=== PATIENT | male | born 1985 | race Caucasian/White ===

== ENCOUNTER 2025-03-22 13:18 | Emergency (ER) | payer OTHER, SELFPAY ==
[2025-03-22 13:21] VITALS: BP 163/111
--- NOTE | 2025-03-22 13:55 | ED.GENMED ---
History of Present Illness
General
Chief Complaint: Crisis Evaluation
Time Seen by Provider: 03/22/25 13:35
History of Present Illness
History of Present Illness:
Patient is a 39-year-old male with history of substance use disorder, presenting to the emergency department for crisis evaluation. Per patient patient used meth a few days ago. He states that his parents initiated a 302. He states that his
parents get upset after he uses meth and lies to get 302 initiated. He does state they said multiple inpatient psychiatric stays both involuntary and voluntary. He does state that he has anxiety depression PTSD. He is not on any medications
currently. At this time he denies any SI or HI. Denies any alcohol or drug use besides meth.
Past History
Past History
ED Past Medical History: Psychiatric (Anxiety, depression) and Other (, hepatitis C with cure, ADHD)
ED Past Surgical History: Appendectomy and Orthopedic (left knee surgery)
Social History
Tobacco: Smoker
Alcohol: Occasional
Drug: Other (Methamphetamine)
Personal: Single
Living: alone
Employment: Not employed
Family History
Family History: Negative Diabetes, Hypertension or CAD
Phy Exam
Physical Exam
Physical Exam:
GENERAL: in no acute distress
HEENT: normocephalic, extraocular movements intact, moist oral mucosa
NECK: normal inspection
RESPIRATORY: no respiratory distress, clear to auscultation bilaterally
CARDIOVASCULAR: regular rate and rhythm
ABDOMEN/: soft, non-distended, non-tender to palpation, no rebound or guarding
EXTREMITIES: non-tender, no edema/swelling
NEUROLOGIC: awake and alert, moves all extremities
Psych: Alert and oriented x 3, normal mood and affect, speech normal not pressured, scattered thoughts, not tangential, not currently suicidal or homicidal, cooperative and communicating, no active auditory or visual hallucinations
SKIN: warm
Course
Orders/Labs/Results
Orders:
Orders
03/22/25 14:04
Crisis Consult Urgent
Reason for Consult: paranoia, delusions
Vital Signs
Initial and Last Documented VS:
Initial Vital Signs
Temp Pulse Resp BP Pulse Ox
98.6 F 95 16 163/111 98
03/22/25 13:21 03/22/25 13:21 03/22/25 13:21 03/22/25 13:21 03/22/25 13:21
Last Documented Vital Signs
Temp Pulse Resp BP Pulse Ox
98.6 F 95 16 163/111 98
03/22/25 13:21 03/22/25 13:21 03/22/25 13:21 03/22/25 13:21 03/22/25 13:59
MDM/Problems Addressed
Differential Diagnosis Includes:
Patient is a 31-year-old male with history of substance use, bipolar disorder not currently on medications presenting to the emergency department for crisis evaluation after parents initiated a 302. On arrival vitals and exam are reassuring.
Patient has no medical complaints. Pending psych eval
*Pulse Oximetry
SaO2: 98
Oxygen Mode of Delivery: Room air
Patient hypoxic: no (98)
*Critical Care Note
Total Time (30-74mins, 75-104mins- exclusive of procedures): Not Applicable
Update Note
Update Note:
Psych evaluated patient and 302 was overturned. I did offer B cares the patient declined at this time. Will discharge patient at this time.
ED Attending Note
-
Portions of this chart may have been created with voice recognition software.� Occasional wrong word or��sound alike� substitutions may have occurred due to the inherent limitations of voice recognition software.
Discharge Plan
Departure
Prescriptions:
No Action
No Current Medications
0
Referrals:
UNKNOWN,NO INTERVIEW [Family Provider]
Interventions
Interventions:
*Risk Screen - Suicide Last Done: 03/22/25 13:21
*General Assessment Last Done: 03/22/25 13:21
*Neglect/Abuse Screening Last Done: 03/22/25 13:21
*ED- Fall Risk Assessment Last Done: 03/22/25 13:21
*ED COVID-19 Vaccine History Last Done: 03/22/25 13:21
Discharge Date and Time
Print Language: SPANISH
--- NOTE | 2025-03-22 15:26 | W.PN.UPDATE ---
Update Note
Progress Note Update
Pt seen for 302 exam. Reviewed the petition with Crisis staff; parents petitioned for 'paranoia/delusions', no specific descriptions and no actual behaviors alleged. Pt has a long hx of substance use- Methamphetamine; pt states he last used
yesterday. Pt seen standing in doorway, alert, oriented, calm, cooperative, with good eye contact. Pt appears mildly restless with excessive hand gestures, steady on his feet. Sensorium appears intact. Pt denies any suicidal/homicidal ideation.
Mood appears stable, affect appropriate. Pt is not agitated or threatening.
Imp: Methamphetamine use/relapse; no overt signs of psychosis. Apparent ongoing conflict with parents due to substance use. Pt denies any S/H ideation. No specific behavior alleged by parents
Rec: 302 is not upheld, does not meet behavior criteria, symptoms appear substance-related
Refer to substance use treatment.
== END 2025-03-22 16:26 | disposition home or self-care (01) ==
LOC: EMR 13:18
PROVIDERS: EMERGENCY PHYSICIAN Student in an Organized Health Care Education/Training Program
DX: F15.90 Other stimulant use, unspecified, uncomplicated (principal)
CPT/HCPCS: 99282

== ENCOUNTER 2025-03-23 00:13 | Emergency (ER) | payer OTHER, SELFPAY ==
[2025-03-23 00:15] VITALS: BP 152/98; BMI 23.4
[2025-03-23 00:53] LABS: Acetaminophen < 10 ug/ml (10-30); Hematocrit 38.8 % (39.0-52.0); Hemoglobin 14.4 g/dL (13.0-18.0); Mean Corp Hgb Conc. 37.1 g/dL (33.0-37.0); Mean Corpuscular Volume 84.9 fL (80.0-94.0); Nucleated Red Blood Cells % 0 % (-); Platelet Count 199 10^3/uL (130-400); Red Cell Dist. Width 12.5 % (11.5-14.5)
[2025-03-23 01:15] LABS: Salicylate < 1.0 mg/dl (2.0-20.0)
--- NOTE | 2025-03-23 03:30 | ED.GENMED ---
History of Present Illness
General
Chief Complaint: Withdrawal Symptoms
Source: patient
Exam Limitations: none
Time Seen by Provider: 03/23/25 03:26
Nursing documentation reviewed up to this point in time: agreed with
History of Present Illness
History of Present Illness:
39-year-old male with past medical history of hypertension, ADHD, substance use disorder presents emergency department today with concerns of apparent methamphetamine withdrawal. On my assessment, patient states that he is asymptomatic and that he
just feels fatigued and notes sadness but denies any dizziness, lightheadedness, chest pain, shortness of breath, nausea, vomiting, fevers or chills. Contrary to triage note, patient denies auditory and visual hallucinations for me. He denies any
suicidal or homicidal ideations. He patient reports that he is staying at a hotel and they are doing a wellness check when EMS was called. Apparently, he was seen yesterday for similar symptoms and thought he had anxiety and depression. His
parents have filed a 32 at the time. He was seen by psychiatry and 2 through 2 was not upheld as patient does not meet behavioral criteria and the symptoms appear to be related to substance abuse. Patient reports that he has been using
methamphetamines almost daily and he reports that it has started to take over his life. Patient reports that he tried once recently and immediately got hooked. Patient denies the use of other substances recently.
Past History
Past History
ED Past Medical History: Psychiatric (Anxiety, depression) and Other (, hepatitis C with cure, ADHD)
ED Past Surgical History: Appendectomy and Orthopedic (left knee surgery)
Social History
Tobacco: Smoker
Alcohol: Occasional
Drug: Other (Methamphetamine)
Personal: Single
Living: alone
Employment: Not employed
Family History
Family History: Negative Diabetes, Hypertension or CAD
Review of Systems
Review of Systems
All Other Systems: ROS reviewed and negative except as documented in HPI and ROS
Phy Exam
Physical Exam
Physical Exam:
General: Patient is well appearing and in no acute distress; non-toxic
Skin: Warm and dry, no rashes or lesions
Head: Normocephalic, atraumatic
Eyes: Sclera non-icteric. EOMs intact.
Cardiac: Regular rate and rhythm, no murmurs
Peripheral Vascular: No lower extremity swelling or edema
Pulm: Normal respiratory effort, no wheezes, rales, or rhonchi
Abdomen: No abdominal tenderness to palpation
Neuro: CN II-XII intact, no focal neurologic deficits.
Psychiatric: Appropriate mood and affect.
Course
Orders/Labs/Results
Orders:
Orders
03/23/25 00:26
Cardiac Monitoring- Treatment ONCE
IV Insert/Care/Rem.- Treatment PRN
Pulse Ox/spot Check [RESP] Urgent
Quantity: 1
03/23/25 00:29
Acetaminophen Urgent
Alcohol Urgent
CBC/With Diff [Complete Blood Count/With Diff] Urgent
Salicylate Urgent
03/23/25 03:26
Fentanyl, Urine Urgent
Urine Drug Abuse Screen Urgent
Date Specimen was Collected: 03/23/25
Time Specimen was Collected: 00:27
Abnormal Lab Results
03/23/25 03/23/25
00:29 03:26
RBC 4.57 L 10^6/uL
(4.70-6.10)
Hct 38.8 L %
(39.0-52.0)
MCH 31.5 H pg
(27.0-31.0)
MCHC 37.1 H g/dL
(33.0-37.0)
MPV 12.0 H fL
(7.4-10.4)
Salicylates < 1.0 L mg/dl
(2.0-20.0)
Acetaminophen < 10 L ug/ml
(10-30)
Ur Amphetamines Screen Positive H
(Negative)
U Methamphetamines Scrn Positive H
(Negative)
03/23/25 00:29
03/23/25 00:23
Vital Signs
Initial and Last Documented VS:
Initial Vital Signs
Temp Pulse Resp BP Pulse Ox
98.8 F 95 24 152/98 100
03/23/25 00:15 03/23/25 00:15 03/23/25 00:15 03/23/25 00:15 03/23/25 00:15
Last Documented Vital Signs
Temp Pulse Resp BP Pulse Ox
98.8 F 95 24 152/98 100
03/23/25 00:15 03/23/25 00:15 03/23/25 00:15 03/23/25 00:15 03/23/25 03:30
MDM/Problems Addressed
Differential Diagnosis Includes:
ddx include methamphetamine abuse, major depressive disorder, generalized anxiety disorder
MDM/Problems Addressed:
39-year-old male with past medical history of hypertension, ADHD, substance use disorder presents emergency department today with concerns of apparent methamphetamine withdrawal. On my assessment, patient states that he is asymptomatic and that he
just feels fatigued and notes sadness but denies any dizziness, lightheadedness, chest pain, shortness of breath, nausea, vomiting, fevers or chills. On physical exam, he is well-appearing and in no acute distress. He reports that he does want
help. He was seen by be [facility] team and outpatient treatment at the [facility] was set up for him and he will be picked up to go there at 8 AM. He was seen yesterday by our psychiatrist and symptoms were determined to be related to substance
abuse, do not feel that he needs further crisis intervention at this time. Case reviewed with ED attending. CMP did hemolyzed but considering patient is essentially asymptomatic and that this was disarrangement related to substance abuse, we do
not feel that redraw is necessary. Patient medically stable for rehab treatment.
Chronic conditions affecting care:
htn
*Pulse Oximetry
SaO2: 100
Oxygen Mode of Delivery: Room air
Patient hypoxic: no
*Critical Care Note
Total Time (30-74mins, 75-104mins- exclusive of procedures): Not Applicable
Data Reviewed
Review of Other/Old Records Reveals: Records (Reviewed chart from 06/01/2021 patient seen for depression and narcotic abuse and was found unresponsive in a car)
Source: patient and records
ED Attending Note
-
Portions of this chart may have been created with voice recognition software.� Occasional wrong word or��sound alike� substitutions may have occurred due to the inherent limitations of voice recognition software.
Discharge Plan
Departure
Patient Disposition: Acute Rehab Facility
Date of Disposition: 03/23/25
Time of Disposition: 06:14
Discharge Problem:
Methamphetamine abuse
Prescriptions:
No Action
No Current Medications
0
Referrals:
UNKNOWN - PT NOT,INTERVIEWE [Family Provider]
Interventions
Interventions:
*Risk Screen - Suicide Last Done: 03/23/25 00:15
*General Assessment Last Done: 03/23/25 00:15
*Neglect/Abuse Screening Last Done: 03/23/25 00:15
*ED- Fall Risk Assessment Last Done: 03/23/25 00:15
*ED COVID-19 Vaccine History Last Done: 03/23/25 00:15
ED- Neurological Assessment Last Done: 03/23/25 00:50
ED-Psychological Assessment Last Done: 03/23/25 00:50
Discharge Date and Time
Print Language: MONTENEGRIN
[2025-03-23 08:00] VITALS: BP 131/78
== END 2025-03-23 10:00 ==
LOC: EMR 00:13
PROVIDERS: EMERGENCY PHYSICIAN Emergency Medicine
DX: F15.10 Other stimulant abuse, uncomplicated (principal); R53.83 Other fatigue; I10 Essential (primary) hypertension; F90.9 Attention-deficit hyperactivity disorder, unspecified type; F41.9 Anxiety disorder, unspecified; F32.A Depression, unspecified; F17.210 Nicotine dependence, cigarettes, uncomplicated; Z86.19 Personal history of other infectious and parasitic diseases; Z88.6 Allergy status to analgesic agent
CPT/HCPCS: 99285; 80143; 80179; 80306; 80307; 82077; 85025